=== PATIENT | male | born 1940 | race Caucasian/White ===

== ENCOUNTER 2022-06-05 06:22 | Observation (INO) ==
--- NOTE | 2022-05-07 11:11 | PAT Medication Instructions ---
Medication Instructions Date of Service May 07, 2022 Home Medications adalimumab 40 mg/0.8 mL subcutaneous pen kit (Humira Pen) 40 mg SUBCUT UD aspirin 81 mg tablet,delayed release 81 mg PO QPM atorvastatin 40 mg tablet 40 mg PO QPM coenzyme Q10 100 mg capsule (CoQ-10) 100 mg PO QAM cyanocobalamin (vitamin B-12) 500 mcg tablet (Vitamin B-12) 500 mcg PO QPM ferrous sulfate 325 mg (65 mg iron) tablet (iron) 325 mg PO 2XWK lisinopril 10 mg tablet 10 mg PO QAM multivitamin 1 cap PO QAM ASK your prescriber and surgeon adalimumab 40 mg/0.8 mL subcutaneous pen kit (Humira Pen) 40 mg SUBCUT UD STOP taking 2 weeks before surgery (or as soon as possible if surgery is within 2 weeks) coenzyme Q10 100 mg capsule (CoQ-10) 100 mg PO QAM DO NOT take the morning of surgery ferrous sulfate 325 mg (65 mg iron) tablet (iron) 325 mg PO 2XWK lisinopril 10 mg tablet 10 mg PO QAM multivitamin 1 cap PO QAM Take evening before surgery aspirin 81 mg tablet,delayed release 81 mg PO QPM (continue as normal unless told otherwise by surgeon) atorvastatin 40 mg tablet 40 mg PO QPM cyanocobalamin (vitamin B-12) 500 mcg tablet (Vitamin B-12) 500 mcg PO QPM Other Notes If you have any questions please call us at [phone] or [phone] or [phone] or [phone]
--- NOTE | 2022-05-10 11:10 | Anesthesiology Consultation ---
Date of Service May 10, 2022 Assessment & Plan (1) Encounter for pre-operative examination: - Patient acceptable risk for surgery pending surgeon-ordered PCP preop evaluation (Dr. Beckford; scheduled 05/24). - COVID screening: Per assessment on 05/10: No known COVID-19 positive contacts or current COVID-19 related symptoms. Travel screen negative. Patient vaccinated. Surgeon arranging preop COVID testing. Awaiting results. - S/P Left TKA (08/22/15): SAB at L3/4 + PNB at [facility] Chart Review Chart Review: Patient seen in Pre Admission Testing Teaching & Discussion Pre-Anesthesia Teaching/Discussion Notes: Instructed NPO after midnight before surgery,except medications with 15 cc of water. Medication instructions provided according to the PAT guidelines. History Surgery Operation Date: 06/05/22 13:00 Proposed Procedures p Right Total Knee Arthroplasty - Igor Cespedes DO Height/Weight Height: 5 ft 11 in Weight: 76.1 kg Allergies Allergy/AdvReac Type Severity Reaction Status Date / Time No Known Allergies Allergy Verified 05/03/22 10:41 Medications Home Medications Medication Instructions Recorded Confirmed Last Taken adalimumab 40 mg/0.8 mL 40 mg SUBCUT UD 05/03/22 05/03/22 Unknown subcutaneous pen kit (Humira Pen) aspirin 81 mg tablet,delayed 81 mg PO QPM 05/03/22 05/03/22 Unknown release atorvastatin 40 mg tablet 40 mg PO QPM 05/03/22 05/03/22 Unknown coenzyme Q10 100 mg capsule 100 mg PO QAM 05/03/22 05/03/22 Unknown (CoQ-10) cyanocobalamin (vitamin B-12) 500 500 mcg PO QPM 05/03/22 05/03/22 Unknown mcg tablet (Vitamin B-12) ferrous sulfate 325 mg (65 mg 325 mg PO 2XWK 05/03/22 05/03/22 Unknown iron) tablet (iron) lisinopril 10 mg tablet 10 mg PO QAM 05/03/22 05/03/22 Unknown multivitamin 1 cap PO QAM 05/03/22 05/03/22 Unknown Past Medical History Medical History Borderline anemia Dx 6 months ago and started on iron supplementation History of myocardial infarction 2002 (stent x1) Discharged from cardiology per pt ([facility]), currently managed by PCP HTN (hypertension) Hyperlipidemia Psoriatic arthritis Exercise / Class Metabolic Activity II 4-5 Yardwork/Stairs/Walk up hill (one FS (no CP, no SOB)) Past Surgical History Surgical History History of cardiac cath 2002 > stent x1 History of cataract surgery R/L History of colonoscopy History of total left knee replacement Left TKA (08/22/15): SAB at L3/4 + PNB at [facility] Past Anesthesia History No Hx of Anesthesia Complications and No Family Hx of Anesthesia Complications History of PONV No Hx of PONV and No Hx of Motion Sickness Social History Smoking Status: Former smoker tobacco type: cigarettes Do You Dip or Chew Tobacco: No Smoking End Date: Quit 50 years ago Hx Alcohol Use: Yes (SOCIALLY) Alcohol type: beer, wine and hard liquor alcohol intake frequency: a few times a week Hx Substance Use: No substance use type: does not use Review of Systems Patient denies chest pain, shortness of breath, dyspnea on exertion, fever, chills, cough, wheezing, palpitations. Physical Exam Vital Signs VITALS BP 124/72 P 75 TEMP 98.2 SP02 97%RA RESP 18 PHYSICAL Full cervical extension range of motion. Full TMJ range of motion. TMD 4 finger breaths Mallampati Score 2 Dentition: upper partial plate Lungs: clear throughout to auscultation Cardiac: regular rate and rhythm, no murmurs noted Spine: normal Carotid arteries: negative bruit Extremities: no edema Lab Results Anesthesia Preop Results Results Anesthesia Widget: WBC 5.09 K/ul (4.8-10.8) 05/10/22 Hgb 13.4 g/dl (14.0-18.0) L 05/10/22 Hct 39.6 % (40.1-51.0) L 05/10/22 Plt 206 K/uL (130-400) 05/10/22 Na 138 mmol/L (136-145) 05/10/22 K 4.7 mmol/L (3.5-5.1) 05/10/22 Cl 106 mmol/L (98-107) 05/10/22 CO2 26 mmol/L (21-32) 05/10/22 BUN 37 mg/dl (6-23) H 05/10/22 Creat 1.29 mg/dl (0.6-1.4) 05/10/22 Glucose Level 101 mg/dl (70-99(Fasting)) H 05/10/22 PT 10.0 Seconds (9.0-12.0) 05/10/22 PTT 28.7 Seconds (21.0-31.0) 05/10/22 INR 0.9 (0.9-1.1) 05/10/22 HA1c 5.7 % (4.5-5.6) H 05/10/22 Urine Color Dark Yellow 05/10/22 Urine Appearance Clear (Clear) 05/10/22 Urine pH 5.0 (4.5-7.5) 05/10/22 Urine Specific [place] 1.032 (1.000-1.030) H 05/10/22 Urine Protein Trace (Negative) H 05/10/22 Urine Glucose (UA) Negative (Negative) 05/10/22 Urine Ketones Trace (Negative) H 05/10/22 Urine Blood Negative (Negative) 05/10/22 Urine Nitrite Negative (Negative) 05/10/22 Urine Bilirubin 1+ (Negative) H 05/10/22 Urine Urobilinogen Negative (Negative) 05/10/22 Urine Leukocyte Esterase Negative (Negative) 05/10/22 Urine WBC (Auto) 1-5 /hpf (0-5) 05/10/22 Urine RBC (Auto) 0-4 /hpf (0-4) 05/10/22 Urine Hyaline Casts (Auto) 1-5 /lpf (0-5) 05/10/22 Urine Epithelial Cells (Auto) 5-10 /lpf (0-5) H 05/10/22 Urine Bacteria (Auto) Negative (Negative) 05/10/22 Blood Type B Positive 05/10/22 Antibody Screen NEGATIVE 05/10/22 Testing Electrocardiogram Date: 05/10/22 SR with marked sinus arrhythmia at 76bpm. Otherwise normal ECG. Chest X-Ray Date: 05/10/22 FINDINGS: Frontal and lateral radiographs of the chest demonstrate the cardiomediastinal silhouette to be within normal limits. The lungs are clear of alveolar opacities. There is no evidence for effusion bilaterally. There is no evidence for vascular congestion. There is no acute osseous pathology. IMPRESSION: No acute cardiopulmonary disease.
--- NOTE | 2022-05-20 07:47 | History & Physical Report ---
Date of Service May 20, 2022 date of surgery: 06/05/22 Procedure: Right Total Knee Arthroplasty Surgeon: Igor Cespedes Assessment & Plan (1) Arthritis of right knee: Plan: Risk and benefits of procedure discussed in detail, patient felt conservative measures likely with right total knee replacement at [facility]. Plan will be on discharge to home health physical therapy for [address] on aspirin 81 mg twice a day for 1 month postop for DVT prophylaxis. Otherwise patient has no other questions or concerns The risks and benefits have been discussed including, but not limited to, risk of infection, nerve injury, stiffness, loss of motion, failure to improve, etc. Reasonable outcomes and options of treatment were discussed. An explanation of appropriate alternatives to the procedure that may be advantageous were discussed and their risks and benefits, as well as the risks and benefits of not proceeding with treatment. I offered to answer any additional inquiries concerning the treatment involved. All the patient's questions were answered. The patient is agreeable, understanding of the treatment plan and alternatives, and wishes to proceed with the treatment plan. History of Present Illness Chief Complaint: Right knee pain Primary Care Provider: Anjum Beckford Mr Pantoja is an 81-year-old male who presents for preop evaluation prior to right total knee replacement. He states he has been having pain in this knee for several years now which is gradually worsened, is now affecting his daily activities including walking standing going up and down steps. He has tried previous injections including cortisone injection as well as viscosupplementation without much relief. He has had his left knee replaced in the past and is doing well. At this point time is failed conservative measures and like to proceed with a right total knee replacement Allergies Allergy/AdvReac Type Severity Reaction Status Date / Time No Known Allergies Allergy Verified 05/03/22 10:41 Home Medications Medication Instructions Recorded Confirmed Type adalimumab 40 mg/0.8 mL 40 mg subcut UD 05/03/22 05/03/22 History subcutaneous pen kit (Humira Pen) aspirin 81 mg tablet,delayed 81 mg PO QPM 05/03/22 05/03/22 History release atorvastatin 40 mg tablet 40 mg PO QPM 05/03/22 05/03/22 History coenzyme Q10 100 mg capsule 100 mg PO QAM 05/03/22 05/03/22 History (CoQ-10) cyanocobalamin (vitamin B-12) 500 500 mcg PO QPM 05/03/22 05/03/22 History mcg tablet (Vitamin B-12) ferrous sulfate 325 mg (65 mg 325 mg PO 2XWK 05/03/22 05/03/22 History iron) tablet (iron) lisinopril 10 mg tablet 10 mg PO QAM 05/03/22 05/03/22 History multivitamin 1 cap PO QAM 05/03/22 05/03/22 History Past Med/Surg History Medical History (Updated 05/20/22 @ 07:53 by Ariel Handley PA-C) Borderline anemia Dx 6 months ago and started on iron supplementation History of myocardial infarction 2002 (stent x1) Discharged from cardiology per pt (Regulo/2005), currently managed by PCP HTN (hypertension) Hyperlipidemia Psoriatic arthritis Surgical History (Updated 05/20/22 @ 07:53 by Ariel Handley PA-C) History of cardiac cath 2002 > stent x1 History of cataract surgery R/L History of colonoscopy History of total left knee replacement Left TKA (08/22/15): SAB at L3/4 + PNB at [facility] Left total knee arthroplasty utilizing [employer] patient matched Journey II block knee, size 6 femur, 6 tibia 15 spacer, 38 patella. Social History Smoking Status: Former smoker Hx Alcohol Use: Yes (SOCIALLY) Alcohol type: beer, wine and hard liquor Hx Substance Use: No Preferred Language: Bahamian Communication Ability: Effective Yard Person Required: No Beliefs That Will Affect Care: None Current Living Situation: Spouse Feels Safe at Home: Yes Review of Systems Review of Systems: All systems reviewed & are unremarkable except as noted in HPI & below Constitutional: no fever, no chills and no sweats Respiratory: no cough and no dyspnea Cardiovascular: no chest pain, no dyspnea and no orthopnea Gastrointestinal: no abdominal pain, no nausea and no vomiting Musculoskeletal: as per Subjective / HPI Physical Exam Physical Exam: HT: 5ft 11in WT: 76.1kg Constitutional: WD/WN, vitals as above no acute distress Respiratory: normal respiratory effort, lungs clear to auscultation no respiratory distress, no labored breathing and does not use accessory muscles Cardiovascular: RRR, no murmur, no edema Gastrointestinal (Abdomen): normal bowel sounds, soft, nontender, no hepatosplenomegaly Musculoskeletal: Knee: + knee abnormal to inspection (RIGHT KNEE: ), + effusion (+1 effusion), + limited ROM of knee (ROM 0/3/110), + knee ROM with crepitation, + joint line tenderness (medial joint line) and + Shauna's sign positive; no deformity, no skin erythema, no ecchymosis, no surgical incision, no valgus laxity, no varus laxity, anterior drawer test negative, Estella's sign negative and pivot shift test negative Results & Data Results & Data ([facility]) Diagnostic Findings Right Knee X-ray: Right knee series showing advanced degenerative changes to the right knee, narrowing of the medial compartment and patello-femoral joint with patellar spurring noted, findings showing joint space narrowing of the medial compartment and patello-femoral joint, osteophyte formation and subchondral sclerosis noted. overall varus alignment. no acute bony pathology noted.
[~2022-06-05 06:22] MED LIST: ACETAMINOPHEN 500 MG TAB PO SCH; CeleBREX 200 MG CAP PO SCH; FAMOTIDINE 20 MG TAB PO SCH; GABAPENTIN 300 MG CAP PO SCH; LR 500ML BOLUS, THEN 15ML/HR IV SCH; METOCLOPRAMIDE HCL 10 MG TABLET PO SCH; ROPIVACAINE 0.5% HCL/PF 150 MG, BUPIVACAINE 0.75% MPF 20 ML, EPINEPHrine 30MG/30ML (OR ... INSTIL SCH; ceFAZolin 2000MG 2,000 MG/15 ML SYR IV SCH; dexAMETHasone 4 MG TAB PO SCH
[2022-06-05] MEDS ORDERED: BUPIVACAINE 0.5 % 5 MG/1 ML PF 10ML VIAL ONE (06:31)
[2022-06-05] MEDS ORDERED: ROPIVACAINE 0.5% 5 MG/ML 30 ML VIAL ONE (06:32)
[2022-06-05] MEDS ORDERED: ePHEDrine sulfate 50 MG/ML SYR ONE (07:12)
[2022-06-05] MEDS ORDERED: LIDOCAINE 2% MPF LOCAL 5 ML VIAL INFIL ONE ×2 (07:12→07:21)
[2022-06-05] MEDS ORDERED: PROPOFOL IV EMULSION 10 MG/ML 20 ML VIAL IV ONE ×2 (07:12→10:14)
[2022-06-05] MEDS ORDERED: PHENYLEPHRINE 100MCG/ML 5ML SYR ONE (07:12)
[2022-06-05] MEDS ORDERED: fentaNYL citrate 100 MCG/2 ML VIAL ONE (07:13)
[2022-06-05] MEDS ORDERED: MIDAZOLAM HCL 1 MG/ML 2ML VIAL ONE (07:13)
--- NOTE | 2022-06-05 07:16 | History & Physical Bridge Note ---
Date of Service June 05, 2022 History & Physical Bridge Note I have examined the patient, reviewed the History & Physical and in the interval since the performance of the History & Physical I have noted the following changes of clinical significance: no changes noted
[2022-06-05] MEDS ORDERED: TRANEXAMIC ACID / 0.7% NACL 1,000 MG/100 ML BAG IV ONE ×2 (07:21)
[2022-06-05] MEDS ORDERED: TRANEXAMIC ACID / 0.7% NACL 1000MG/100ML BAG IV ONE (07:23)
[2022-06-05] MEDS ORDERED: ATROPINE SULFATE 0.1 MG/ML 10ML SYR IV PRN (07:29)
[2022-06-05] MEDS ORDERED: ePHEDrine sulfate 50 MG/ML AMP IV PRN (07:29)
[2022-06-05] MEDS ORDERED: ONDANSETRON INJ 2 MG/ML 2 ML VIAL IV PRN ×2 (07:29→12:25)
[2022-06-05] MEDS ORDERED: fentaNYL citrate 100 MCG/2 ML VIAL IV PRN (07:29)
[2022-06-05] MEDS ORDERED: ORTHO JOINT ANESTHETIC ONE (07:40)
--- NOTE | 2022-06-05 09:46 | Operative Report ---
Post Operative Report Pre & Post Diagnosis Operation Date: 06/05/22 08:10 Pre-Op Diagnosis: Osteoarthritis Right Knee Post-Op Diagnosis: Osteoarthritis Right Knee I identified the patient and participated in the time-out.: Yes Procedure Operation Date: 06/05/22 08:10 Actual Procedures p Right Total Knee Arthroplasty, Cemented(Right utilizing [employer] journey 2 patient matched total knee arthroplasty size femur 6 right tibia 6 polyeleven patella 32 oval) - Igor Cespedes DO Surgeon Igor Cespedes DO Pulp And Paper Tester Davon CABELLO Estimated Blood Loss 5 Findings Consistent with Post-Op Diagnosis Patient presents with severe end-stage tricompartmental DJD no response to conservative management varus alignment subchondral sclerosis marginal osteophytes eburnated [id number] and moderate to large effusion Specimens Bone and cartilage Anesthesia Type MAC Spinal Regional Complications none Disposition Accompanied Patient To Recovery: No Disposition: Recovery Room Indications Patient presents with severe end-stage tricompartmental degenerative joint disease failed attempted conservative management daily corticosteroid injection viscosupplementation relative rest activity modification patient presents with the above intraoperative findings Description of Procedure After proper prepping and draping of the Right lower extremity anterior midline incision was made over the region of the extensor extensor mechanism after meticulous hemostasis was obtained and maintained in subcutaneous tissues a medial parapatellar incision was made The patella was subluxed lateralward the medial lateral gutter were cleaned from any hypertrophic synovitis and scar tissue of the distal femoral block was placed and the distal femoral osteotomy cut was made subsequently the chamfers anterior and posterior osteotomy cuts were made utilizing the 4-in-1 block the tibia was subsequently subluxed anteriorward medial and ateral meniscal remnants were excised in their entirety remnants of the anterior and posterior cruciate ligaments were excised in their entirety excellent exposure of the proximal tibia was obtained the tibial os teotomy guide was placed on the proximal tibial osteotomy cut was made once again the knee was irrigated with copious amounts of sterile saline solution the patella was subsequently everted lateralward thickened scar tissue around the patella was removed the patella was subsequently cut utilizing a freehand technique and was drilled prepared for final preparation and placement of patella socially flexion-extension gaps were checked and the equal and symmetric trials were placed to the appropriate femoral and tibial trials with poly-spacer being placed for equal flexion and extension gaps and full range of motion including extension to 0 and flexion to 140 the trial components after having been taken to recovery range of motion was subsequently removed meticulous hemostasis was obtained and maintained subsequently a knee block injection of joint cocktail including ropivacaine 0.5% 150 mg. Bupivacaine 0.5% epinephrine 1-200,030 mL's toradol 30 mg dexamethasone 4 mg ketamine 10 mg clonidine 100 micrograms normal saline solution 30 mg was infiltrated into the soft tissues of the posterior knee medial lateral gutters and periosteal synovium special attention was paid to protect neurovascular structures at all times subsequently trial components having been removed the knee was irrigated with sterile saline solution. debris was removed the proximal tibia was subsequently prepared and was made ready for the placement of the tibial component tibial component was also cemented and tamped into position the femoral component was subsequently placed and cemented in the position the patellar component was subsequently cemented in position because hemostasis once again obtained and maintained wound having been thoroughly irrigated with debridement and debridement lavage was performed as well as a medial parapatellar incision closed with #1 Vicryl in interrupted fashion subcutaneous was closed with #2 Vicryl skin was closed with skin clips. PA-C was necessary for prepping and drapping as well as wound closure of deep fascia Sub cutaneous tissue and skin and was necessary for the case. A sterile compressive dressing was placed patient was taken to recovery in stable condition of report dictated by Coy I attest to the content of the Intraoperative Record and any orders documented therein. Any exceptions are noted below.Due to the complex nature of the pr ocedure, the entire surgery was performed with the operational assistance of Davon CABELLO. The assistant to the director, under direct supervision, was involved in the actual performance of all aspects of the surgical procedure including hemostasis, tissue retraction and incision, instrument management, patient positioning, and wound closure. I attest to the content of the Intraoperative Record and any orders documented therein. Any exceptions are noted below.
--- NOTE | 2022-06-05 10:58 | XRay Report ---
TWO VIEWS RIGHT KNEE CLINICAL HISTORY: Postoperative examination. FINDINGS: AP and crosstable lateral portable views of the right knee are obtained. A right knee arthr oplasty is in near anatomic alignment. There has been undersurface remodeling of the patella. No acut e fracture is seen. There are expected postoperative changes around the knee including a surgical ilana in, soft tissue edema, and subcutaneous gas. IMPRESSION: Expected postoperative changes status post right knee arthroplasty. No acute fracture is seen. ACT 112: Negative or not required by law. Electronically signed by: Loco Pitts M.D. 06/05/2022 10:57 AM
--- NOTE | 2022-06-05 11:20 | Anesthesiology Progress Note ---
Date of Service June 05, 2022 Anesthesia Post Procedure Vital Signs Vital Signs: Temp Pulse Pulse Resp BP Pulse Ox O2 Del Method 06/05/22 11:10 97.2 F L 79 20 142/82 H 96 Room Air 06/05/22 11:00 80 16 135/75 95 Room Air 06/05/22 10:40 80 16 131/71 99 Room Air 06/05/22 10:50 82 20 130/77 97 Room Air 06/05/22 10:30 81 16 117/71 99 Oxymask 06/05/22 10:25 97.9 F 82 14 120/66 98 Oxymask 06/05/22 06:53 98.2 F 83 20 150/84 H 98 Room Air O2 Flow Rate 06/05/22 11:10 06/05/22 11:00 06/05/22 10:40 06/05/22 10:50 06/05/22 10:30 3 06/05/22 10:25 6 06/05/22 06:53 Pain Intensity Right Knee: Pain Intensity: 0 Transfer of Care Handoff Completed per policy Notes Mental Status: alert / awake / arousable and participated in evaluation Patient Amnestic to Procedure: Yes Nausea / Vomiting: adequately controlled Pain: adequately controlled Airway Patency, RR, SpO2: stable & adequate BP & HR: stable & adequate Hydration State: stable & adequate Neuraxial Anesthesia: was administered and sensory block is resolving Anesthetic Complications: no major complications apparent and Pt Satisfied with anesthetic care
[2022-06-05] MEDS ORDERED: PHARMACY GLYCEMIC MGMT CONSULT PRN (12:25)
[2022-06-05] MEDS ORDERED: oxyCODONE HCL IR 5 MG TAB (IMMEDIATE RELEASE) PO PRN (12:25)
[2022-06-05] MEDS ORDERED: bisacodyL 10 MG SUPP PR PRN (12:25)
[2022-06-05] MEDS ORDERED: MAGNESIUM HYDROXIDE SUSP 30 ML UDC PO PRN (12:25)
[2022-06-05] MEDS ORDERED: HYDROmorphone INJ 0.5 MG/0.5 ML SYR IV PRN (12:25)
[2022-06-05] MEDS ORDERED: NALOXONE HCL 0.4 MG/1 ML VIAL/CARP IV PRN (12:25)
[2022-06-05] MEDS: SODIUM CHLORIDE 0.9% 1000ML 1,000 ML IV SCH ×2 (12:43→22:27)
--- NOTE | 2022-06-05 12:53 | Pharmacy Report ---
Pharmacy Glycemic Short Note 2 - Date of Service June 05, 2022 - Glycemic Short BSG Results (Last 24 hours): 06/05/22 12:32 POC Glucose 150 H OUTPATIENT ANTIDIABETIC REGIMEN: * None * HbA1c = 5.7% (05/10/22) ASSESSMENT: * 82 yo M admitted s/p right total knee arthroplasty. Does not have a history of diabetes as an outpatient. Most recent HbA1c qualifies as prediabetic. No medications for diabetes at home so considered diet controlled at this time. Pharmacy has been consulted to assist with inpatient glycemic management. * Patient is ordered and tolerating a T2DM diet. Received a one-time preoperative dose of Dexamethasone 8 mg PO. No further steroids ordered. * Postoperative BSG was 150 mg/dL. Will give NPH to cover steroid induced hyperglycemia (0.25 units/kg). Will start Novolog based on weight/stress of 2.5. Targeting a goal range of 110-140 to prevent postoperative infection and promote wound healing. PLAN FOR INPATIENT GLYCEMIC CONTROL: * Basal insulin * NPH 20 units SC x 1 * Bolus insulin * NovoLog per scale ACHS or Q6hrs while NPO * Goal Range: Low 110 mg/dL - High 140 mg/dL * Correction Factor: 25 mg/dL/unit * Nutritional / Prandial insulin per carb ratio of 1 unit per 8 grams CHO consumed
[2022-06-05] MEDS ORDERED: NovoLIN-N (NPH) PER UNIT CHARGE SQ ONE (13:00)
[2022-06-05] MEDS ORDERED: GLUCOSE 10 TAB/TUBE PO PRN (13:00)
[2022-06-05] MEDS ORDERED: GLUCOSE 40% GEL 15 GM TUBE PO PRN (13:00)
[2022-06-05] MEDS ORDERED: CARBOHYDRATES FOR HYPOGLYCEMIA PO PRN (13:00)
[2022-06-05] MEDS ORDERED: DEXTROSE 50% 50 ML SYRINGE IV PRN (13:00)
[2022-06-05] MEDS ORDERED: GLUCAGON FOR INJ 1 MG VIAL IM PRN (13:00)
[2022-06-05] MEDS: ACETAMINOPHEN 500 MG TAB PO SCH ×2 (13:16→21:16)
[2022-06-05] MEDS: INSULIN ASPART PER UNIT SC SCH ×3 (13:26→21:00)
--- NOTE | 2022-06-05 13:34 | Anesthesiology Progress Note ---
Date of Service June 05, 2022 Anesthesia Post Procedure Vital Signs Vital Signs: Temp Pulse Pulse Resp BP Pulse Ox O2 Del Method 06/05/22 13:09 36.5 C 85 16 151/79 H 98 Room Air 06/05/22 12:40 36.4 C L 77 16 152/80 H 96 Room Air 06/05/22 12:10 36.4 C L 80 16 156/85 H 97 Room Air 06/05/22 11:50 36.4 C L 81 20 143/97 H 94 Room Air 06/05/22 11:40 79 16 140/85 96 Room Air 06/05/22 11:30 77 16 138/85 94 Room Air 06/05/22 11:20 78 16 161/76 H 96 Room Air 06/05/22 11:10 36.2 C L 79 20 142/82 H 96 Room Air 06/05/22 11:00 80 16 135/75 95 Room Air 06/05/22 10:40 80 16 131/71 99 Room Air 06/05/22 10:50 82 20 130/77 97 Room Air 06/05/22 10:30 81 16 117/71 99 Oxymask 06/05/22 10:25 36.6 C 82 14 120/66 98 Oxymask 06/05/22 06:53 36.8 C 83 20 150/84 H 98 Room Air O2 Flow Rate 06/05/22 13:09 06/05/22 12:40 06/05/22 12:10 06/05/22 11:50 06/05/22 11:40 06/05/22 11:30 06/05/22 11:20 06/05/22 11:10 06/05/22 11:00 06/05/22 10:40 06/05/22 10:50 06/05/22 10:30 3 06/05/22 10:25 6 06/05/22 06:53 Pain Intensity Right Knee: Pain Intensity: 0 Transfer of Care Handoff Completed per policy Notes Mental Status: alert / awake / arousable and participated in evaluation Patient Amnestic to Procedure: Yes Nausea / Vomiting: adequately controlled Pain: adequately controlled Airway Patency, RR, SpO2: stable & adequate BP & HR: stable & adequate Hydration State: stable & adequate Neuraxial Anesthesia: was administered and sensory block is resolving Anesthetic Complications: no major complications apparent and Pt Satisfied with anesthetic care
[2022-06-05] MEDS: ceFAZolin 1000MG 1,000 MG/7.5 ML SYR IV SCH (17:36)
[2022-06-05] MEDS ORDERED: SENNA 8.6 MG TAB PO SCH (21:00)
[2022-06-05] MEDS ORDERED: ATORVASTATIN 40 MG TAB PO SCH (21:00)
[2022-06-05] MEDS ORDERED: CYANOCOBALAMIN (B-12) 500 MCG TABLET PO SCH (21:00)
[2022-06-05] MEDS: ASPIRIN 81 MG ECTAB PO SCH (21:14)
[2022-06-05] MEDS: DOCUSATE SODIUM 100 MG CAP PO SCH (21:15)
[2022-06-06] MEDS: ceFAZolin 1000MG 1,000 MG/7.5 ML SYR IV SCH (01:20)
[2022-06-06] MEDS ORDERED: INSULIN ASPART PER UNIT SC SCH (02:00)
[2022-06-06] MEDS: ACETAMINOPHEN 500 MG TAB PO SCH (06:05)
[2022-06-06 07:14] LABS: Hematocrit (blood only) 32.6 % (40.1-51.0); Mean Corpuscular Hemoglobin 32.3 pg (25.0-34.0); Mean Corpuscular Hgb Conc 33.7 g/dL (32.0-36.0); Mean Corpuscular Volume 95.6 fL (80.0-100.0); Mean Platelet Volume 9.5 fL (9.4-12.4); Platelet Count 176 K/uL (130-400); RDW Coefficient of Variation 11.9 % (11.5-14.5); RDW Standard Deviation 41.1 fL (36.4-46.3); Red Blood Count 3.41 M/uL (4.63-6.08); White Blood Count 9.41 K/ul (4.8-10.8)
[2022-06-06 07:45] LABS: BUN Creatinine Ratio 28.7 (10-20); Calcium 8.3 mg/dl (8.5-10.1); Creatinine Clr Calc Pharmacy 41.8 ml/min; Est GFR (African American) 52.9 ml/min; Est GFR (Non-African American) 45.6 ml/min
[2022-06-06] MEDS: ASPIRIN 81 MG ECTAB PO SCH (08:46)
[2022-06-06] MEDS: DOCUSATE SODIUM 100 MG CAP PO SCH (08:46)
[2022-06-06] MEDS: INSULIN ASPART PER UNIT SC SCH (08:47)
[2022-06-06] MEDS ORDERED: lisinopril 10 MG TAB PO SCH (09:00)
[2022-06-06] MEDS ORDERED: MULTIVITAMIN TAB PO SCH (09:00)
[2022-06-06] MEDS ORDERED: NON-FORMULARY MEDICATION (Coenzyme Q10 [Coq-10] 100 mg Capsule) PO SCH (09:00)
--- NOTE | 2022-06-06 09:34 | Orthopedic Progress Note ---
Date of Service June 06, 2022 Assessment & Plan (1) Arthritis of right knee: Plan: Postop day 1 status post right total knee arthroplasty. PT/OT protocols. Weightbearing as tolerated. DVT prophylaxis-aspirin p.o. twice daily, SCDs, KIANA stoll. Pain management as written. DC planning-patient is hoping for home health services upon discharge. Admission and Anticipated Discharge Date Admission Date: June 05, 2022 Subjective Postop day 1 Patient is sitting up in his chair at the bedside. No complaints this morning. Pain is controlled. Denies shortness of breath, chest pain, lightheadedness. He is hoping to go home today. Physical Exam Physical Exam: Dressings are clean, dry, and intact. Calves are soft and nontender. Neurovascular intact. Toes are mobile. He has good dorsiflexion and plantarflexion of the right foot. Hemovac drainage was 200 mL in the previous shift. Results & Data ([facility]) Vital Signs (Past 12 Hours) Vital Signs Temp Pulse Resp BP Pulse Ox O2 Del Method 06/06/22 07:06 36.7 C 81 16 157/68 H 98 Room Air 06/06/22 02:45 36.6 C 77 18 143/84 H 97 Room Air 06/05/22 23:08 36.5 C 67 18 147/74 H 96 Room Air Laboratory Results Laboratory Results WBC 9.41 K/ul (4.8-10.8) 06/06/22 06:22 RBC 3.41 M/uL (4.63-6.08) L 06/06/22 06:22 Hgb 11.0 g/dl (14.0-18.0) L 06/06/22 06:22 Hct 32.6 % (40.1-51.0) L 06/06/22 06:22 MCV 95.6 fL (80.0-100.0) 06/06/22 06:22 MCH 32.3 pg (25.0-34.0) 06/06/22 06: MCHC 33.7 g/dL (32.0-36.0) 06/06/22 06:22 RDW Std Deviation 41.1 fL (36.4-46.3) 06/06/22 06: RDW Coeff of Fabi 11.9 % (11.5-14.5) 06/06/22 06:22 Plt Count 176 K/uL (130-400) 06/06/22 06:22 MPV 9.5 fL (9.4-12.4) 06/06/22 06:22 Sodium 137 mmol/L (136-145) 06/06/22 06:22 Potassium 4.0 mmol/L (3.5-5.1) 06/06/22 06:22 Chloride 108 mmol/L (98-107) H 06/06/22 06:22 Carbon Dioxide 22 mmol/L (21-32) 06/06/22 06:22 Anion Gap 7 (3-11) 06/06/22 06:22 BUN 41 mg/dl (6-23) H 06/06/22 06:22 Creatinine 1.43 mg/dl (0.6-1.4) H 06/06/22 06:22 Est Cr Clr Drug Dosing 41.8 ml/min 06/06/22 06:22 Est GFR ( Amer) 52.9 ml/min 06/06/22 06:22 Est GFR (Non-Af Amer) 45.6 ml/min 06/06/22 06:22 BUN/Creatinine Ratio 28.7 (10-20) H 06/06/22 06:22 Glucose 115 mg/dl (70-99(Fasting)) H 06/06/22 06:22 POC Glucose 115 mg/dl (70-99) H 06/06/22 08:17 Calcium 8.3 mg/dl (8.5-10.1) L 06/06/22 06:22 SARS-CoV-2, RNA, NAAT NEGATIVE (NEGATIVE) 06/05/22 06:33 Impressions Knee X-Ray 06/05/22 10:32 TWO VIEWS RIGHT KNEE CLINICAL HISTORY: Postoperative examination. FINDINGS: AP and crosstable lateral portable views of the right knee are obtained. A right knee arthroplasty is in near anatomic alignment. There has been undersurface remodeling of the patella. No acute fracture is seen. There are expected postoperative changes around the knee including a surgical drain, soft tissue edema, and subcutaneous gas. IMPRESSION: Expected postoperative changes status post right knee arthroplasty. No acute fracture is seen. ACT 112: Negative or not required by law. Electronically signed by: Loco Pitts M.D. 06/05/2022 10:57 AM
--- NOTE | 2022-06-07 12:07 | Discharge Summary ---
Date of Service June 07, 2022 Admission HPI Per Admitting Provider Mr Kit is an 81-year-old male who presents for preop evaluation prior to right total knee replacement. He states he has been having pain in this knee for several years now which is gradually worsened, is now affecting his daily activities including walking standing going up and down steps. He has tried previous injections including cortisone injection as well as viscosupplementation without much relief. He has had his left knee replaced in the past and is doing well. At this point time is failed conservative measures and like to proceed with a right total knee replacement Admission Exam Per Admitting Provider Physical Exam: HT: 5ft 11in WT: 76.1kg Constitutional: WD/WN, vitals as above no acute distress Respiratory: normal respiratory effort, lungs clear to auscultation no respiratory distress, no labored breathing and does not use accessory muscles Cardiovascular: RRR, no murmur, no edema Gastrointestinal (Abdomen): normal bowel sounds, soft, nontender, no hepatosplenomegaly Musculoskeletal: Knee: + knee abnormal to inspection (RIGHT KNEE: ), + effusion (+1 effusion), + limited ROM of knee (ROM 0/3/110), + knee ROM with crepitation, + joint line tenderness (medial joint line) and + Shauna's sign positive; no deformity, no skin erythema, no ecchymosis, no surgical incision, no valgus laxity, no varus laxity, anterior drawer test negative, Estella's sign negative and pivot shift test negative Principal Diagnosis Right knee osteoarthritis Discharge Data Allergies Allergy/AdvReac Type Severity Reaction Status Date / Time No Known Allergies Allergy Verified 06/05/22 06:51 Procedures Performed Operation Date: 06/05/22 08:10 Actual Procedures p Right Total Knee Arthroplasty, Cemented(Right) - Igor Cespedes DO Ordered Studies 06/05/22 05:00 US - OR guided needle placemen Routine Hospital Course (1) Arthritis of right knee: Patient:DORI LAWTON Admit Date:06/05/22 MR#:[id number] Att Phy:Igor Cespedes D.O. Acct ID:[id number] Laura Phy:Anjum Beckford DO Date:1940 Fam Phy: Age:82 Location:3E Sex:M Room/Bed:E314-1 cc: ~ *NOTICE TO RECEIVING LIBERTARIAN/AGENCY This information is strictly Confidential and protected under [place] law. [place] law prohibits you from making any further disclosure of this information unless further disclosure is expressly permitted by the written consent of the person to whom it pertains or is authorized by law. A general authorization for the release of medical or other information is not sufficient for this purpose. Hospital accepts no responsibility if the information is made available to any other person, INCLUDING THE PATIENT. Date of Service June 06, 2022 Assessment & Plan (1) Arthritis of right knee: Plan: Postop day 1 status post right total knee arthroplasty. PT/OT protocols. Weightbearing as tolerated. DVT prophylaxis-aspirin p.o. twice daily, SCDs, KIANA stoll. Pain management as written. DC planning-patient is hoping for home health services upon discharge. Admission and Anticipated Discharge Date Admission Date: June 05, 2022 Subjective Postop day 1 Patient is sitting up in his chair at the bedside. No complaints this morning. Pain is controlled. Denies shortness of breath, chest pain, lightheadedness. He is hoping to go home today. Physical Exam Physical Exam: Dressings are clean, dry, and intact. Calves are soft and nontender. Neurovascular intact. Toes are mobile. He has good dorsiflexion and plantarflexion of the right foot. Hemovac drainage was 200 mL in the previous shift. Results & Data ([facility]) Vital Signs (Past 12 Hours) Vital Signs Temp Pulse Resp BP Pulse Ox O2 Del Method 06/06/22 07:06 36.7 C 81 16 157/68 H 98 Room Air 06/06/22 02:45 36.6 C 77 18 143/84 H 97 Room Air 06/05/22 23:08 36.5 C 67 18 147/74 H 96 Room Air Laboratory Results Laboratory Results WBC 9.41 K/ul (4.8-10.8) 06/06/22 06:22 RBC 3.41 M/uL (4.63-6.08) L 06/06/22 06:22 Hgb 11.0 g/dl (14.0-18.0) L 06/06/22 06:22 Hct 32.6 % (40.1-51.0) L 06/06/22 06:22 MCV 95.6 fL (80.0-100.0) 06/06/22 06:22 MCH 32.3 pg (25.0-34.0) 06/06/22 06:22 MCHC 33.7 g/dL (32.0-36.0) 06/06/22 06:22 RDW Std Deviation 41.1 fL (36.4-46.3) 06/06/22 06:22 RDW Coeff of Fabi 11.9 % (11.5-14.5) 06/06/22 06:22 Plt Count 176 K/uL (130-400) 06/06/22 06:22 MPVE 9.5 fL (9.4-12.4) 06/06/22 06:22 Sodium 137 mmol/L (136-145) 06/06/22 06:22 Potassium 4.0 mmol/L (3.5-5.1) 06/06/22 06:22 Chloride 108 mmol/L (98-107) H 06/06/22 06:22 Carbon Dioxide 22 mmol/L (21-32) 06/06/22 06:22 Anion Gap 7 (3-11) 06/06/22 06:22 BUN 41 mg/dl (6-23) H 06/06/22 06:22 Creatinine 1.43 mg/dl (0.6-1.4) H 06/06/22 06:22 Est Cr Clr Drug Dosing 41.8 ml/min 06/06/22 06:22 Est GFR ( Amer) 52.9 ml/min 06/06/22 06:22 Est GFR (Non-Af Amer) 45.6 ml/min 06/06/22 06:22 BUN/Creatinine Ratio 28.7 (10-20) H 06/06/22 06:22 Glucose 115 mg/dl (70-99(Fasting)) H 06/06/22 06:22 POC Glucose 115 mg/dl (70-99) H 06/06/22 08:17 Calcium 8.3 mg/dl (8.5-10.1) L 06/06/22 06:22 SARS-CoV-2, RNA, NAAT NEGATIVE (NEGATIVE) 06/05/22 06:33 Impressions Knee X-Ray 06/05/22 10:32 TWO VIEWS RIGHT KNEE CLINICAL HISTORY: Postoperative examination. FINDINGS: AP and crosstable lateral portable views of the right knee are obtained. A right knee arthroplasty is in near anatomic alignment. There has been undersurface remodeling of the patella. No acute fracture is seen. There are expected postoperative changes around the knee including a surgical drain, soft tissue edema, and subcutaneous gas. IMPRESSION: Expected postoperative changes status post right knee arthroplasty. No acute fracture is seen. Total Time Total Time Spent Total Time Spent (In Minutes): 5 Discharge Plan Discharge Items Patient Disposition: Home - Home Health Services Reason For Visit: Unilateral Primary Osteoarthritis Right Knee Discharge Diagnosis: Right Knee Osteoarthritis Activity: Per Instructions section Weightbearing: Right weightbearing Weightbearing Comment: as tolerated with walker Non-emergency contact: Surgeon Call non-emergency contact if: you have any medication questions, your pain is not controlled, your temperature is above 101.5, your wound has increased redness and your wound has increased drainage Follow-up/Referrals: Igor Cespedes DO [Surgeon] - (Follow up with Dr Cespedes in 2 weeks from the day of your surgery for your first post operative visit) Anjum Beckford DO [Primary Care Provider] - Addtl Attending Provider Instructions: Home Health services will be removing your drains and dressing on 06/07/22 ACTIVITY RECOMMENDATIONS: SELF CARE INSTRUCTIONS AFTER TOTAL KNEE REPLACEMENT A. You may need to continue a physical therapy program after discharge from the hospital. There are several options available to you. Your doctor will assist you in selecting the best one for you. 1. An out-patient facility 2 to 3 times a week for therapy or home therapy. 2. Continue working on all exercises taught to you in the hospital. Your goals should be to increase bending of your knee to 90 degrees and beyond and to fully straighten your knee. B. You may progress at your own pace from walking with a walker or crutches to a cane; then to no assistive devices. C. Make walking a part of your daily routine. Be up as much as comfortable with rest periods throughout the day. Rest with leg elevation is very important. Use the ice wrap frequently for the first 3-4 weeks. D. There are no restrictions on activities. You may ride in a car, shop, participate in director of teaching and learning and all social activities. E. Wear the long elastic stockings (KIANA hose) 20 hours a day for 2 weeks after surgery. They can be removed several times a day for laundering and for a bath. F. You may shower, no tub baths until cleared by your doctor. SPECIAL CARE INSTRUCTIONS: VERY IMPORTANT TO READ AND REVIEW A. There are a few signs you need to watch for after you are home. Call [facility] if you notice any of the followin. Increased severe knee pain. Some pain is expected especially when you exercise. 2. Increased swelling in your leg or knee; pain or swelling of the calf muscle in either lower leg. 3. Any fluid drainage from the incision. 4. Shortness of breath or chest pain. B. Please call [facility] at if you have any concerns or questions about your operation or recovery. The doctor or his nurse will return your call promptly. C. You must take antibiotics before dental work, bladder, bowel or other surgery. Your doctor will provide you with a permanent care to carry describing this precaution. IMPORTANT: * REMEMBER TO TAKE ASPIRIN, 81 MG, TWICE DAILY FOR 4 WEEKS UNLESS OTHERWISE DIRECTED. THIS IS YOUR BLOOD THINNER. * HIGH RISK PATIENTS MAY BE PRESCRIBED A STRONGER BLOOD THINNER. THIS WILL BE PROVIDED AT DISCHARGE. * CALL IF INCREASED PAIN, REDNESS, DRAINAGE OR FEVER GREATER THAT 101. * WEAR KIANA HOSE 20 HOURS PER DAY FOR 2 WEEKS. * CARRIE Dressing - This is a large suction dressing covering your incision. This will help pull any excess drainage from the wound and allow your incision to heal properly. You may shower with this if you can keep the unit outside of the shower. If any bleeding or leakage is noted please call your doctor's office. This will remain on your incision for 7 days and then should be removed. This can be done yourself or by the home nursing staff if applicable. The entire unit is disposable once removed. Once removed, keep incision clean and dry. If redness or drainage is noted, please call your surgeon. . * When your Carrie dressing is removed, follow the wound care instructions below. * DERMABOND Prineo- This is a mesh tape dressing that is covered with glue. It should remain in place until the incision is properly healed, usually 10-14 days. This dressing is designed to naturally slough off. You may trim the excess mesh tape as it peels off. Incision may be briefly wet in a shower. Dry immediately by blotting with a clean, dry towel. Do not bath or swim until instructed by your doctor. Do not scratch, rub, or pick at the dressing. Do not apply any topical ointments or lotions until dressing is completely removed and/or instructed by your doctor. There may be a small piece of suture material at one end of your incision. Do not pull or trim this. If it is bothersome or catching on clothing, you may cover it with a band-aid. FOLLOW UP VISIT: If appointment is not already scheduled: Please call [facility] to make a follow-up appointment for 2 weeks after your surgery at . Stand-Alone Forms: My [facility], Opioid Pain Management, Smoking Cessation Medications and DC Order Prescriptions: New aspirin 81 mg Tablet,Delayed Release (Dr/Ec) 81 mg PO BID 30 Days Qty: 60 0RF acetaminophen [Tylenol Extra Strength] 500 mg Tablet 1,000 mg PO Q8 14 Days Qty: 84 0RF polyethylene glycol 3350 [Miralax] 17 gram powder in packet 17 g PO DAILY PRN (Reason: constipation) Qty: 5 0RF cefadroxil 500 mg capsule 500 mg PO BID Qty: 28 1RF oxycodone 5 mg tablet 5 mg PO Q4H MDD 6 PRN (Reason: pain) Qty: 30 0RF Continued atorvastatin 40 mg Tablet 40 mg PO QPM cyanocobalamin (vitamin B-12) [Vitamin B-12] 500 mcg Tablet 500 mcg PO QPM ferrous sulfate [iron] 325 mg (65 mg iron) Tablet 325 mg PO 2XWK Label Comments: SUN AND WED lisinopril 10 mg Tablet 10 mg PO QAM multivitamin Capsule 1 cap PO QAM coenzyme Q10 [CoQ-10] 100 mg Capsule 100 mg PO QAM Humira Pen 40 mg/0.8 mL Pen Injector Kit 40 mg SUBCUT UD Label Comments: EVERY OTHER WEEK Discontinued aspirin [Aspir-81] 81 mg Tablet,Delayed Release (Dr/Ec) 81 mg PO QPM acetaminophen [Tylenol Ex Str Arthritis Pain] 500 mg Tablet 500 mg PO Q6H PRN (Reason: Pain) Discharge Orders: Discharge Order (Routine); Ordered 06/06/22 Ordered By: Davon Rodriguez Admission Data Admit Date/Time: 06/05/22 10:32 Attending Provider: Igor Cespedes Admit Provider: Igor Cespedes Primary Care Provider: Anjum Beckford Other Interventions: Discharge Summary Assessment (RN) Last Done: 06/06/22 11:46
== END 2022-06-06 14:19 | disposition home health service (06) ==
LOC: 3E 06:22 → ASU 06:22